=== PATIENT | male | born 1995 | race Caucasian/White ===

== ENCOUNTER 2022-02-09 07:59 | Inpatient (IN) ==
[2022-02-09] MEDS ORDERED: IOPAMIDOL 100 ML BOTTLE IV ONE (08:00)
[2022-02-09] MEDS ORDERED: ASPIRIN 81 MG TAB.CHEW CHEWED ONE (08:18)
[2022-02-09] MEDS ORDERED: morphine 2 MG/ML VIAL IV ONE (08:18)
[2022-02-09] MEDS ORDERED: ONDANSETRON 4 MG/2 ML VIAL IV ONE (08:18)
[2022-02-09] MEDS ORDERED: 0.9 % SODIUM CHLORIDE 1,000 ML IV ONE (08:18)
--- NOTE | 2022-02-09 08:26 | Emergency Department Note ---
Chest Pain HPI General Chief Complaint: Chest Pain Stated Complaint: chest pain Time Seen by Provider: 02/09/22 08:07 Source: patient Mode of arrival: ambulatory Limitations: no limitations History of Present Illness HPI Narrative: Narrative: Patient presents to the ED with complaints of chest pain that started about 20 minutes prior to arrival. Patient states that the pain is on the right side of his chest and is a deep ache. He states he was at work when the pain came on and it dropped into his knees he was in such pain. At that time he rated at 10/10. He states the pain is now about 4/10. He reports initially having some nausea and some shortness of breath with it. States he is also had some chills. Patient is very emotional during this interview. He denies fever, vomiting, heart palpitation, pain rating to his left arm or neck, headache, vision changes, hemoptysis, melena, medic easier, hematemesis, abdominal pain. Patiently recently had a stent removed from his urethra due to a stricture that he had. He states when he peed this morning he did not have any burning but he still has a little bit of blood which she was told was to be expected. Patient denies any other alleviating or aggravating factors. Related Data Home Medications Medication Instructions Recorded Confirmed ibuprofen 800 mg tablet 800 mg PO Q8H PRN Pain 02/09/22 02/09/22 sildenafil 25 mg tablet 25 mg PO QDAY 02/09/22 02/09/22 Previous Rx's Medication Instructions Recorded ciprofloxacin HCl 250 mg tablet 250 mg PO BID 5 days #10 tabs 02/09/22 Allergies Allergy/AdvReac Type Severity Reaction Status Date / Time No Known Drug Allergies Allergy Unverified 02/09/22 08:04 Review of Systems ROS ROS Narrative: Narrative: All systems ED: reviewed and negative except as stated. PFSH Narrative Patient History Narrative: Narrative: Medical/Surgical/Family History All Active Problems (Updated 02/09/22 @ 11:39 by Steven Hauser DO) Urinary tract infection (Acute) Sepsis (Acute) Acidosis, lactic (Acute) Social History Smoking Status: Never smoker Exam Narrative Narrative: Narrative: General Limitations: no limitations General appearance: Present alert Chest Chest: Present tenderness Respiratory Respiratory: Present normal lung sounds bilaterally; Absent respiratory distress Cardiovascular Cardiovascular: Present normal rhythm and tachycardia Adbominal Abdominal: Present soft, tenderness and normal bowel sounds Expanded Abdominal Abdominal Tenderness: Present epigastrium; Absent RUQ Extremities Extremities: Present normal capillary refill Neurological Neurological: Present oriented X3 and normal gait Psychiatric Psychiatric: Present anxious and serious Skin Skin: Present warm (WNL) and intact Course Course Course Narrative: Patient was evaluated for right-sided chest pain. He has some reproducible chest pain with palpation. EKG was obtained and was unremarkable. Troponins were negative x2. Patient was found to be acidotic with elevated lactic acid greater than 4 and also a pH less than 7.3. Patient was aggressively hydrated with IV fluids. Chest x-ray obtained with image reviewed myself with no acute cardiopulmonary findings. Patient's D-dimer was elevated so a CT of the chest was obtained was negative for DVT. After receiving IV fluids patient appeared much better and interacted with me more appropriately and was not as anxious. UA was concerning for UTI so was given IV Rocephin and vancomycin. Patient does meet sepsis criteria with tachycardia, tachypnea and source of infection. His white cell count was normal. Repeat VBG show that patient's pH had normalized and his lactic acid had returned to within normal limits. Patient could have been dehydrated along with a UTI but he is now hemodynamically stable. We will go ahead and discharge him home with oral Cipro x5 days. He is to follow with his PCP within 1 week. Patient is seek medical attention symptoms worsen. Patient and family expressed verbal understanding of and agreement of plan ---Patient was about to be discharged but then he spiked a fever of 101 and his blood pressure dropped to 120 systolically to the low 90s systolically. His blood pressure maintained around there. Patient himself felt fine. He was given some oral Tylenol. At this point patient does meet sepsis criteria and a known infection and I do not feel comfortable discharging him home. I discussed the case with our hospitalist who agrees that patient should be admitted for UTI sepsis. Plan of care was discussed with the patient and his family and they agree with this change in to be admitted. Consultations Consultation #1: Case discussed with hospitalist, Dr. Kilgore, who has accepted patient to be admitted to the hospital for UTI sepsis Time: 13:05 Vital Signs Vital signs: Vital Signs Temperature 99.1 F H 02/09/22 08:00 Pulse Rate 130 H 02/09/22 08:00 Respiratory Rate 20 02/09/22 08:00 Blood Pressure 131/81 02/09/22 08:00 Pulse Oximetry (%) 95 02/09/22 08:00 Oxygen Delivery Method 02/09/22 08:00 Temperature 101.2 F H 02/09/22 12:39 Pulse Rate 114 H 02/09/22 12:44 Respiratory Rate 22 02/09/22 12:44 Blood Pressure 92/58 02/09/22 12:44 Pulse Oximetry (%) 96 02/09/22 12:44 Oxygen Delivery Method 02/09/22 08:00 MDM MDM Narrative Medical decision making narrative: Narrative: Differential Diagnosis Differential Diagnosis: TN, atypical chest pain, GERD Medical Records Medical records reviewed: Yes I reviewed the patient's medical records. Lab Data Lab results reviewed: Yes I reviewed the patient's lab results. Result diagrams: 02/09/22 08:19 Labs: Lab Results 02/09/22 02/09/22 02/09/22 Range/Units 08:15 08:16 08:19 WBC 4.8 (4.5-11.0) K/mcL RBC 5.88 (4.63-6.08) M/mcL Hgb 16.5 (13.7-17.5) g/dL Hct 52.1 H (40.1-51.0) % MCV 88.6 (80.0-100.0) fL MCH 28.1 (26.0-34.0) pg MCHC 31.7 (31.0-36.0) g/dL RDW 13.3 (11.5-14.5) % Plt Count 214 (140-440) K/mcL MPV 9.9 (8.8-12.5) fL Immature Gran % (Auto) 0.4 (0.0-0.5) % Neut % (Auto) 74.6 (38.0-78.0) % Lymph % (Auto) 22.5 (15.5-49.0) % [place] % (Auto) 0.6 L (1.0-12.0) % Eos % (Auto) 1.3 (0.0-7.0) % Baso % (Auto) 0.6 (0.0-2.0) % Lymph # (Auto) 1.07 L (1.50-4.80) K/mcL [place] # (Auto) 0.03 L (0.10-0.90) K/mcL Eos # (Auto) 0.06 (0.00-0.70) K/mcL Baso # (Auto) 0.03 (0.00-0.30) K/mcL Immature Gran # 0.02 (0.00-0.05) K/mcl Absolute Neutrophils 3.54 (1.80-8.00) K/mcL D-Dimer (0.27-0.50) ug/mL POC VBG pH 7.28 L (7.32-7.42) POC VBG pCO2 at Temp 59.5 H (41-51) POC VBG pO2 24 L (25-40) POC VBG HCO3 27.9 (24-28) POC VBG Total CO2 30.0 H (25-29) POC Venous O2 Sat 35.0 L (40-70) POC VBG Base Excess 1.0 (-2-2) VBG Lactic Acid 4.1 H* (0.5-2) Total Bilirubin 0.8 (0.1-1.0) mg/dL Direct Bilirubin < 0.2 (0-0.3) mg/dL AST 17 (<40) U/L ALT 25 (<40) U/L Alkaline Phosphatase 89 (39-117) U/L Total Protein 7.7 (5.9-8.4) gm/dL Albumin 4.7 (3.2-5.2) gm/dL Globulin 3.0 (2.2-3.7) gm/dL Urine Color Urine Appearance (Clear) Urine pH (5.0-9.0) Ur Specific [place] (1.000-1.035) Urine Protein (Negative) mg/dL Urine Glucose (UA) (Negative) mg/dL Urine Ketones (Negative) mg/dL Urine Occult Blood (Negative) mg/dL Urine Nitrate (Negative) Urine Bilirubin (Negative) mg/dL Urine Urobilinogen mg/dL Ur Leukocyte Esterase (Negative) /uL Urine RBC (0-3) /hpf Urine WBC (0-4) /hpf Ur Squamous Epith Cells (0-4) /hpf Urine Bacteria (0) /hpf Ur Culture Indicated? POC Troponin I (0.00-0.08) 02/09/22 02/09/22 02/09/22 Range/Units 08:20 08:32 10:55 WBC (4.5-11.0) K/mcL RBC (4.63-6.08) M/mcL Hgb (13.7-17.5) g/dL Hct (40.1-51.0) % MCV (80.0-100.0) fL MCH (26.0-34.0) pg MCHC (31.0-36.0) g/dL RDW (11.5-14.5) % Plt Count (140-440) K/mcL MPV (8.8-12.5) fL Immature Gran % (Auto) (0.0-0.5) % Neut % (Auto) (38.0-78.0) % Lymph % (Auto) (15.5-49.0) % [place] % (Auto) (1.0-12.0) % Eos % (Auto) (0.0-7.0) % Baso % (Auto) (0.0-2.0) % Lymph # (Auto) (1.50-4.80) K/mcL [place] # (Auto) (0.10-0.90) K/mcL Eos # (Auto) (0.00-0.70) K/mcL Baso # (Auto) (0.00-0.30) K/mcL Immature Gran # (0.00-0.05) K/mcl Absolute Neutrophils (1.80-8.00) K/mcL D-Dimer 0.63 H (0.27-0.50) ug/mL POC VBG pH 7.36 (7.32-7.42) POC VBG pCO2 at Temp 49.6 (41-51) POC VBG pO2 20 L (25-40) POC VBG HCO3 27.8 (24-28) POC VBG Total CO2 29.0 (25-29) POC Venous O2 Sat 30.0 L (40-70) POC VBG Base Excess 2.0 (-2-2) VBG Lactic Acid 2.0 (0.5-2) Total Bilirubin (0.1-1.0) mg/dL Direct Bilirubin (0-0.3) mg/dL AST (<40) U/L ALT (<40) U/L Alkaline Phosphatase (39-117) U/L Total Protein (5.9-8.4) gm/dL Albumin (3.2-5.2) gm/dL Globulin (2.2-3.7) gm/dL Urine Color Urine Appearance (Clear) Urine pH (5.0-9.0) Ur Specific [place] (1.000-1.035) Urine Protein (Negative) mg/dL Urine Glucose (UA) (Negative) mg/dL Urine Ketones (Negative) mg/dL Urine Occult Blood (Negative) mg/dL Urine Nitrate (Negative) Urine Bilirubin (Negative) mg/dL Urine Urobilinogen mg/dL Ur Leukocyte Esterase (Negative) /uL Urine RBC (0-3) /hpf Urine WBC (0-4) /hpf Ur Squamous Epith Cells (0-4) /hpf Urine Bacteria (0) /hpf Ur Culture Indicated? POC Troponin I < 0.02 (0.00-0.08) 02/09/22 02/09/22 Range/Units 10:57 11:04 WBC (4.5-11.0) K/mcL RBC (4.63-6.08) M/mcL Hgb (13.7-17.5) g/dL Hct (40.1-51.0) % MCV (80.0-100.0) fL MCH (26.0-34.0) pg MCHC (31.0-36.0) g/dL RDW (11.5-14.5) % Plt Count (140-440) K/mcL MPV (8.8-12.5) fL Immature Gran % (Auto) (0.0-0.5) % Neut % (Auto) (38.0-78.0) % Lymph % (Auto) (15.5-49.0) % [place] % (Auto) (1.0-12.0) % Eos % (Auto) (0.0-7.0) % Baso % (Auto) (0.0-2.0) % Lymph # (Auto) (1.50-4.80) K/mcL [place] # (Auto) (0.10-0.90) K/mcL Eos # (Auto) (0.00-0.70) K/mcL Baso # (Auto) (0.00-0.30) K/mcL Immature Gran # (0.00-0.05) K/mcl Absolute Neutrophils (1.80-8.00) K/mcL D-Dimer (0.27-0.50) ug/mL POC VBG pH (7.32-7.42) POC VBG pCO2 at Temp (41-51) POC VBG pO2 (25-40) POC VBG HCO3 (24-28) POC VBG Total CO2 (25-29) POC Venous O2 Sat (40-70) POC VBG Base Excess (-2-2) VBG Lactic Acid (0.5-2) Total Bilirubin (0.1-1.0) mg/dL Direct Bilirubin (0-0.3) mg/dL AST (<40) U/L ALT (<40) U/L Alkaline Phosphatase (39-117) U/L Total Protein (5.9-8.4) gm/dL Albumin (3.2-5.2) gm/dL Globulin (2.2-3.7) gm/dL Urine Color Yellow Urine Appearance Hazy A (Clear) Urine pH 7.0 (5.0-9.0) Ur Specific [place] 1.040 (1.000-1.035) Urine Protein Negative (Negative) mg/dL Urine Glucose (UA) Negative (Negative) mg/dL Urine Ketones Negative (Negative) mg/dL Urine Occult Blood 0.20 (Negative) mg/dL Urine Nitrate Pos A (Negative) Urine Bilirubin Negative (Negative) mg/dL Urine Urobilinogen Negative mg/dL Ur Leukocyte Esterase 250 A (Negative) /uL Urine RBC 29 H (0-3) /hpf Urine WBC 20 H (0-4) /hpf Ur Squamous Epith Cells < 1 (0-4) /hpf Urine Bacteria Mod A (0) /hpf Ur Culture Indicated? yes POC Troponin I < 0.02 (0.00-0.08) ED POC Tests ED POC Tests: KERI - Influenza A Negative KERI - Influenza B Negative KERI - SARS Antigen Negative Radiology Data Radiology results reviewed: Yes I reviewed the patient's radiology results. Radiology results narrative: Chest x-ray obtained with image reviewed myself, agree with radiologist interpretation CT angiogram of the chest obtained with image reviewed myself, agree with radiologist interpretation EKG Data EKG #1: EKG attestation: Yes I reviewed and interpreted this EKG. 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: No Clinical Impression: Acidosis, lactic Urinary tract infection Qualifiers: Urinary tract infection type: site unspecified Hematuria presence: without hematuria Qualified Code(s): N39.0 - Urinary tract infection, site not specified Sepsis Qualifiers: Sepsis type: sepsis due to unspecified organism Sepsis acute organ dysfunction status: without acute organ dysfunction Qualified Code(s): A41.9 - Sepsis, unspecified organism Activity: resume usual activities as tolerated Instructions: Urinary Tract Infection in Men (DC) Activity Restrictions/Additional Instructions: Follow-up PCP within 1 week Use antibiotics as prescribed Drink plenty of fluid Seek medical attention symptoms worsen Patient Disposition: Xfer As Outpt/Obs ([facility]) Condition: Fair Follow up with: No,PCP [Primary Care Provider] - Prescriptions: New ciprofloxacin HCl 250 mg tablet 250 mg PO BID 5 Days Qty: 10 0RF No Action ibuprofen 800 mg Tablet 800 mg PO Q8H PRN (Reason: Pain) sildenafil 25 mg Tablet 25 mg PO QDAY Rx Instructions: administer 30 minutes to 4 hours before activity
[2022-02-09] MEDS ORDERED: 0.9 % SODIUM CHLORIDE 2,260 ML IV ONE (08:27)
--- NOTE | 2022-02-09 08:53 | XRay Report ---
INDICATION: cp TECHNIQUE: AP portable semiupright chest x-ray COMPARISON: None FINDINGS: Lungs:Lungs are negative. No focal pulmonary parenchymal infiltrate or mass Heart, vascular:No significant cardiomegaly. Pulmonary vascularity is normal. No pulmonary edema or pulmonary congestion Mediastinum, rodolfo:No mediastinal widening. No hilar mass Pleura:No pleural fluid. No pleural-based mass or calcification Skeletal:Negative. IMPRESSION: Negative AP chest x-ray Interpreted and Authenticated by: Aurelio Khanna 02/09/22
[2022-02-09 08:58] LABS: Basophils # (Auto) 0.03 K/mcL (0.00-0.30); Basophils % (Auto) 0.6 % (0.0-2.0); Eosinophils # (Auto) 0.06 K/mcL (0.00-0.70); Eosinophils % (Auto) 1.3 % (0.0-7.0); Hematocrit 52.1 % (40.1-51.0); Hemoglobin 16.5 g/dL (13.7-17.5); Lymphocytes # (Auto) 1.07 K/mcL (1.50-4.80); Lymphocytes % (Auto) 22.5 % (15.5-49.0); Mean Cell Volume 88.6 fL (80.0-100.0); Mean Corpuscular HGB Conc 31.7 g/dL (31.0-36.0); Mean Platelet Volume 9.9 fL (8.8-12.5); Monocytes # (Auto) 0.03 K/mcL (0.10-0.90); Monocytes % (Auto) 0.6 % (1.0-12.0); Neutrophils % (Auto) 74.6 % (38.0-78.0); Platelet Count 214 K/mcL (140-440); RBC 5.88 M/mcL (4.63-6.08); Red Cell Distribution Width 13.3 % (11.5-14.5); WBC 4.8 K/mcL (4.5-11.0)
[2022-02-09 09:18] LABS: ALT/SGPT 25 U/L (<40); AST/SGOT 17 U/L (<40); Albumin 4.7 gm/dL (3.2-5.2); Alkaline Phosphatase 89 U/L (39-117); Bilirubin,Direct < 0.2 mg/dL (0-0.3); Bilirubin,Total 0.8 mg/dL (0.1-1.0)
--- NOTE | 2022-02-09 10:31 | Cat Scan Report ---
INDICATION: Chest pain, tachycardia, elevated D-dimer COMPARISON: Previous chest x-ray dated 02/09/2022 TECHNIQUE: Axial images obtained through the chest. 70ml Isovue 370 injected intravenously, and scanning was performed during pulmonary arterial phase. Sagittally and coronally reformatted images were obtained. MIP reformatted images. FINDINGS: Lungs:No focal pulmonary parenchymal density. No calcified or noncalcified nodule Mediastinum, vascular:Main pulmonary artery, right pulmonary artery, left pulmonary artery are negative. No intraluminal filling defects. No lobar, segmental, or subsegmental emboli. Thoracic aorta is negative. No aneurysmal dilatation No pathologic mediastinal or hilar adenopathy Heart:No cardiomegaly. No pericardial effusion. Pleura:No significant pleural effusion. No pleural mass or calcification Axilla, supraclavicular regions, chest wall:No pathologic axillary or supraclavicular adenopathy. Musculoskeletal:Negative thoracic spine. No compression fracture. No lytic lesion. No rib or sternal lesions Upper Abdomen:Negative IMPRESSION: Negative pulmonary CTA The exam was performed using radiation dose optimization techniques including, but not limited to, automated exposure control, adjustment of the mA and/or kV according to patient size and use of iterative reconstruction technique. Interpreted and Authenticated by: Aurelio Khanna 02/09/22
[2022-02-09] MEDS ORDERED: cefTRIAXone 2 GM in DEXTROSE 5% IN WATER 50 ML IV ONE (10:44)
[2022-02-09] MEDS ORDERED: VANCOMYCIN 1,000 MG in 0.9 % SODIUM CHLORIDE 250 ML IV ONE (10:45)
[2022-02-09] MEDS ORDERED: VANCOMYCIN 1,500 MG in 0.9 % SODIUM CHLORIDE 500 ML IV ONE (11:00)
[2022-02-09] MEDS ORDERED: ACETAMINOPHEN 325 MG TABLET PO ONE (12:36)
[2022-02-09] MEDS ORDERED: IBUPROFEN 800 MG TABLET PO PRN (13:23)
[2022-02-09 13:26] LABS: Appearance,Urine HAZY (Clear); Bacteria,Urine MOD /hpf (0); Bilirubin,Urine Negative (Negative); Color,Urine YELLOW; Culture Indicated,Urine yes; Glucose,Urine (UA) Negative (Negative); Ketones,Urine Negative (Negative); Leukocyte Esterase,Urine 250 /uL (Negative); Nitrate,Urine POS (Negative); Protein,Urine Negative (Negative); Urine RBC 29 /hpf (0-3); Urine Squamous Epithelial Cell < 1 /hpf (0-4); Urine WBC 20 /hpf (0-4); Urobilinogen,Urine Negative
--- NOTE | 2022-02-09 13:40 | Internal Med History&Physical ---
HPI History of Present Illness Patient information: Note initiated : 02/09/22 at 1:28 pm Service Date, if different from initiated Date: [] Patient: Arya Ojeda a 26 y/o M admitted on for chest pain. Chief Complaint: [chest pain, chills] Chief complaint: chest pain, chills History of present illness: Mr. Ojeda is a 26 year old M history of urethral stricture, status post surgical interventions by urologist Dr. Palomares a week ago, and he is Villegas catheter removed yesterday, presenting with 1 day history of acute onset chest pain and chills. He stated that he never had any UTI in the past. This morning at 7:30 AM, he had acute onset substernal chest pain that last for 30 seconds before it resolved spontaneously. He is also reporting chills. He denies any fever or diaphoresis. He denies any urinary symptoms such as dysuria, or change in urinary frequency or urgency. He is complain of lower middle back pain. He denies any GI upset such as nausea or vomiting. He presented to our ED today, significant for lactic acid of 4.0, and after 3 L of NS bolus given, repeat lactic acid 2.0. UA positive for leukocyte esterase and nitrates suggestive of the presence of urinary tract infections. Lack of leukocytosis with WBC 4.8. Troponin <0.02. Vital signs at ED presentation also significant for tachycardia and tachypnea with heart rate and rate of breathing in the 1 teens and 30s, respectively. Fever with T-max 38.4. Admission request was called for complicated urinary infections. Constitutional Constitutional: Present chills; Absent excessive sweating, fatigue, fever(s) or weakness EENT Eyes: Absent blurry vision, change in vision, loss of vision or other visual disturbances Ears: Absent decreased hearing or tinnitus Nose, mouth and throat: Absent abnormal hearing, dry mouth, headache(s), nasal congestion or sore throat Cardiovascular Cardiovascular: Present chest pain at rest; Absent chest pain, edema, irregular heart rhythm or palpatations Respiratory Respiratory: Absent cough, dyspnea or wheezing Gastrointestinal Gastrointestinal: Absent abdominal pain, constipation, diarrhea, nausea or vomiting Musculoskeletal Musculoskeletal: Present back pain; Absent deformity, limited range of motion, muscle cramps, muscle weakness or numbness Integumentary Integumentary: Absent lesions, rash or wounds Neurological Neurological: Absent focal weakness, headache(s) or numbness Psychiatric Psychiatric: Absent anxiety, depression or hallucinations PFSH PFSH All Active Problems (Updated 02/09/22 @ 13:45 by Hiro Kilgore MD) Obesity (BMI 35.0-39.9 without comorbidity) (Acute) Urinary tract infection (Acute) Sepsis (Acute) Acidosis, lactic (Acute) Social History smoking status: Never smoker MEDS/ALLERGIES Home Medications and Allergies Home Medications Medication Instructions Recorded Confirmed Type ciprofloxacin HCl 250 mg tablet 250 mg PO BID 5 days #10 tabs 02/09/22 Rx ibuprofen 800 mg tablet 800 mg PO Q8H PRN Pain 02/09/22 02/09/22 History sildenafil 25 mg tablet 25 mg PO QDAY 02/09/22 02/09/22 History Allergies Allergy/AdvReac Type Severity Reaction Status Date / Time No Known Drug Allergies Allergy Unverified 02/09/22 08:04 EXAM Constitutional Vitals: Temp Pulse Resp BP Pulse Ox O2 Del Method 38.4 C H 114 H 22 92/58 96 02/09/22 12:39 02/09/22 12:44 02/09/22 12:44 02/09/22 12:44 02/09/22 12:44 02/09/22 08:00 General appearance: cooperative, no acute distress and obese Head Head exam: Present atraumatic and normocephalic Eye Eye exam: Present EOMI and PERRL ENT ENT exam: Present mucous membranes moist, normal exam and normal external ear exam Neck Neck exam: Present normal inspection; Absent lymphadenopathy, tenderness or thyromegaly Respiratory Respiratory exam: Absent accessory muscle use, respiratory distress or wheezes Cardiovascular Cardiovascular exam: Present tachycardia; Absent JVD GI/Abdominal GI/Abdominal exam: Present normal bowel sounds and soft; Absent organomegaly or tenderness Rectal Rectal exam: Present deferred Extremities Exam Extremities exam: Present full ROM, normal capillary refill and normal inspection; Absent tenderness Neurological Exam Neurological exam: Present alert, CN II-XII intact and oriented X3; Absent motor sensory deficit Psychiatric Psychiatric exam: Present normal affect and normal mood; Absent anxious or depressed Skin Skin exam: Present dry and intact DATA Data Completed and Pending Labs: Labs from last 24 hours 02/09/22 02/09/22 02/09/22 11:04 10:57 10:55 WBC RBC Hgb Hct MCV MCH MCHC RDW Plt Count MPV Immature Gran % (Auto) Neut % (Auto) Lymph % (Auto) [place] % (Auto) Eos % (Auto) Baso % (Auto) Lymph # (Auto) [place] # (Auto) Eos # (Auto) Baso # (Auto) Immature Gran # Absolute Neutrophils D-Dimer POC VBG pH 7.36 POC VBG pCO2 at Temp 49.6 POC VBG pO2 20 L POC VBG HCO3 27.8 POC VBG Total CO2 29.0 POC Venous O2 Sat 30.0 L POC VBG Base Excess 2.0 VBG Lactic Acid 2.0 Total Bilirubin Direct Bilirubin AST ALT Alkaline Phosphatase Total Protein Albumin Globulin Urine Color Yellow Urine Appearance Hazy A Urine pH 7.0 Ur Specific [place] 1.040 Urine Protein Negative Urine Glucose (UA) Negative Urine Ketones Negative Urine Occult Blood 0.20 Urine Nitrate Pos A Urine Bilirubin Negative Urine Urobilinogen Negative Ur Leukocyte Esterase 250 A Urine RBC 29 H Urine WBC 20 H Ur Squamous Epith Cells < 1 Urine Bacteria Mod A Ur Culture Indicated? yes POC Troponin I < 0.02 02/09/22 02/09/22 02/09/22 08:32 08:20 08:19 WBC 4.8 RBC 5.88 Hgb 16.5 Hct 52.1 H MCV 88.6 MCH 28.1 MCHC 31.7 RDW 13.3 Plt Count 214 MPV 9.9 Immature Gran % (Auto) 0.4 Neut % (Auto) 74.6 Lymph % (Auto) 22.5 [place] % (Auto) 0.6 L Eos % (Auto) 1.3 Baso % (Auto) 0.6 Lymph # (Auto) 1.07 L [place] # (Auto) 0.03 L Eos # (Auto) 0.06 Baso # (Auto) 0.03 Immature Gran # 0.02 Absolute Neutrophils 3.54 D-Dimer 0.63 H POC VBG pH POC VBG pCO2 at Temp POC VBG pO2 POC VBG HCO3 POC VBG Total CO2 POC Venous O2 Sat POC VBG Base Excess VBG Lactic Acid Total Bilirubin Direct Bilirubin AST ALT Alkaline Phosphatase Total Protein Albumin Globulin Urine Color Urine Appearance Urine pH Ur Specific [place] Urine Protein Urine Glucose (UA) Urine Ketones Urine Occult Blood Urine Nitrate Urine Bilirubin Urine Urobilinogen Ur Leukocyte Esterase Urine RBC Urine WBC Ur Squamous Epith Cells Urine Bacteria Ur Culture Indicated? POC Troponin I < 0.02 02/09/22 02/09/22 08:16 08:15 WBC RBC Hgb Hct MCV MCH MCHC RDW Plt Count MPV Immature Gran % (Auto) Neut % (Auto) Lymph % (Auto) [place] % (Auto) Eos % (Auto) Baso % (Auto) Lymph # (Auto) [place] # (Auto) Eos # (Auto) Baso # (Auto) Immature Gran # Absolute Neutrophils D-Dimer POC VBG pH 7.28 L POC VBG pCO2 at Temp 59.5 H POC VBG pO2 24 L POC VBG HCO3 27.9 POC VBG Total CO2 30.0 H POC Venous O2 Sat 35.0 L POC VBG Base Excess 1.0 VBG Lactic Acid 4.1 H* Total Bilirubin 0.8 Direct Bilirubin < 0.2 AST 17 ALT 25 Alkaline Phosphatase 89 Total Protein 7.7 Albumin 4.7 Globulin 3.0 Urine Color Urine Appearance Urine pH Ur Specific [place] Urine Protein Urine Glucose (UA) Urine Ketones Urine Occult Blood Urine Nitrate Urine Bilirubin Urine Urobilinogen Ur Leukocyte Esterase Urine RBC Urine WBC Ur Squamous Epith Cells Urine Bacteria Ur Culture Indicated? POC Troponin I A/P Assessment and plan (1) Urinary tract infection: Status: Acute Qualifiers: Hematuria presence: without hematuria Urinary tract infection type: site unspecified Qualified Code(s): N39.0 - Urinary tract infection, site not specified (2) Sepsis: Status: Acute Qualifiers: Sepsis acute organ dysfunction status: without acute organ dysfunction Sepsis type: sepsis due to unspecified organism Qualified Code(s): A41.9 - Sepsis, unspecified organism (3) Obesity (BMI 35.0-39.9 without comorbidity): Status: Acute Narrative A/P Narrative: Assessment and Plans: 1. UTI with sepsis: Inpatient med surg Serial lactic acid Procalcitonin level Blood culture Urine culture cbc w/ auto diff in the morning to trend WBC CT abdomen pelvis s/p 3L fluid bolus given in the ED, to be followed by NS@100cc/hr [place] 2. 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
--- NOTE | 2022-02-09 13:53 | Cat Scan Report ---
INDICATION: sepsis, uti COMPARISON: None. TECHNIQUE: Axial images were obtained through the abdomen and pelvis. Sagittally and coronally reformatted images. FINDINGS: This patient underwent previous chest CTA approximate 4 hours prior to this examination. There is contrast material present. Lung bases:No pulmonary parenchymal density. No calcified or noncalcified nodule. No pleural or pericardial effusion Liver:Negative. No detectable hepatic mass. Liver contour is smooth Gallbladder, bilary:No calcified gallstones. No gallbladder wall thickening. No pericholecystic fluid. No dilated bile ducts Spleen:No splenomegaly Pancreas:No pancreatic mass. No peripancreatic abnormality Adrenal glands:Negative Kidneys,ureters,bladder:No solid renal mass. No hydronephrosis. No obstructing or nonobstructing calculi. There is contrast material within the renal collecting systems and nonobstructing calculi may be obscured No hydroureter. No ureteral calculus. Bladder is filled with contrast material. There is no discrete bladder mass. Bladder wall appears diffusely thickened without focal abnormality. There is no intraluminal or mural gas. This patient gives a history of urethral instrumentation approximately one week ago. There is no catheter within the urethra or bladder. Gastrointestinal:No detectable colonic mass. There is no diverticulitis. Negative small bowel. No mechanical small bowel obstruction. No bowel wall thickening. No focal abnormality. Negative stomach and duodenum. No focal abnormality. Appendix: The appendix is negative Vascular:No abdominal aortic aneurysm Lymphatic:No retroperitoneal adenopathy. No significant mesenteric adenopathy. Mesentery, peritoneum:No free intraperitoneal fluid. No intra-abdominal abscess. No pneumoperitoneum Reproductive:Prostate is not significantly enlarged Musculoskeletal:No lumbar compression fractures. There is degenerative disc disease at L5-S1 with mild L5-S1 retrolisthesis. No lytic lesions. Sacrum, pelvis, hips are negative No anterior abdominal wall or inguinal hernia. IMPRESSION: 1. Urinary bladder wall appears mildly thickened. No discrete mass. No intraluminal or intramural gas 2. Degenerative disc disease and retrolisthesis at L5-S1 The exam was performed using radiation dose optimization techniques including, but not limited to, automated exposure control, adjustment of the mA and/or kV according to patient size and use of iterative reconstruction technique. Interpreted and Authenticated by: Aurelio Khanna 02/09/22
[2022-02-09] MEDS ORDERED: IPRATROPIUM/ALBUTEROL 3 ML AMPUL.NEB NEB PRN (14:44)
[2022-02-09] MEDS ORDERED: ONDANSETRON 4 MG/2 ML VIAL IV PRN (14:44)
[2022-02-09] MEDS ORDERED: cefTRIAXone 1 GM in DEXTROSE 5% IN WATER 50 ML IV SCH (14:44)
[2022-02-09] MEDS ORDERED: oxyCODONE HCL 5 MG TABLET PO PRN (14:44)
[2022-02-09] MEDS ORDERED: morphine 4 MG/ML VIAL IV PRN (14:44)
[2022-02-09] MEDS ORDERED: ZOLPIDEM 5 MG TABLET PO PRN (14:44)
[2022-02-09] MEDS: 0.9 % SODIUM CHLORIDE 10 ML SYRINGE IV SCH ×2 (15:47→20:59)
[2022-02-09] MEDS: 0.9 % SODIUM CHLORIDE 1,000 ML IV SCH (16:05)
[2022-02-09] MEDS: DOCUSATE SODIUM 100 MG CAPSULE PO SCH (20:58)
[2022-02-09] MEDS ORDERED: SENNOSIDES 1 TABLET PO SCH (21:00)
[2022-02-10] MEDS: 0.9 % SODIUM CHLORIDE 1,000 ML IV SCH (02:30)
[2022-02-10] MEDS: 0.9 % SODIUM CHLORIDE 10 ML SYRINGE IV SCH (04:36)
[2022-02-10 06:24] LABS: Basophils # (Auto) 0.02 K/mcL (0.00-0.30); Basophils % (Auto) 0.3 % (0.0-2.0); Eosinophils # (Auto) 0.01 K/mcL (0.00-0.70); Eosinophils % (Auto) 0.1 % (0.0-7.0); Hematocrit 45.1 % (40.1-51.0); Hemoglobin 14.4 g/dL (13.7-17.5); Lymphocytes % (Auto) 6.6 % (15.5-49.0); Mean Cell Volume 89.1 fL (80.0-100.0); Mean Corpuscular HGB Conc 31.9 g/dL (31.0-36.0); Mean Platelet Volume 9.9 fL (8.8-12.5); Monocytes # (Auto) 0.46 K/mcL (0.10-0.90); Monocytes % (Auto) 6.1 % (1.0-12.0); Neutrophils % (Auto) 86.4 % (38.0-78.0); Platelet Count 144 K/mcL (140-440); RBC 5.06 M/mcL (4.63-6.08); Red Cell Distribution Width 13.6 % (11.5-14.5); WBC 7.6 K/mcL (4.5-11.0)
[2022-02-10 06:49] LABS: ALT/SGPT 21 U/L (<40); AST/SGOT 17 U/L (<40); Albumin 3.5 gm/dL (3.2-5.2); Albumin/Globulin Ratio 1.8 (1.0-2.3); Alkaline Phosphatase 69 U/L (39-117); Bilirubin,Total 0.5 mg/dL (0.1-1.0); Blood Urea Nitrogen 9 mg/dL (6-20); Carbon Dioxide 23 mmol/L (22-30); Chloride 106 mmol/L (96-108); Glomerular Filtration Rate 116; Glucose 106 mg/dL (70-105)
[2022-02-10] MEDS: DOCUSATE SODIUM 100 MG CAPSULE PO SCH (08:20)
[2022-02-10] MEDS ORDERED: cefTRIAXone 1 GM VIAL IV SCH (09:00)
[2022-02-10] MEDS ORDERED: ENOXAPARIN 40 MG/0.4 ML SYRINGE SQ SCH (09:00)
--- NOTE | 2022-02-10 09:16 | EKG ---
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
[2022-02-10 09:22] LABS: POC Calcium, Ionized 1.22 (1.16-1.32); POC Creatinine 1.2 (0.6-1.2)
[2022-02-10] MEDS ORDERED: FLU VACC QS2022-23(6MOS UP)/PF 60 MCG/0.5 ML SYRINGE IM ONE (10:00)
--- NOTE | 2022-02-10 10:35 | Internal Med Progress Note ---
SUBJECTIVE Subjective Patient information: Note initiated : 02/10/22 at 10:32 am Service Date, if different from initiated Date: [] Patient: Arya Ojeda a 26 y/o M admitted on 02/09/22 for chest pain. Chief Complaint: [] Interval history: Mr. Ojeda is a 26 year old M history of urethral stricture, status post surgical interventions by urologist Dr. Palomares a week ago, and he is Villegas catheter removed yesterday, presenting with 1 day history of acute onset chest pain and chills. He stated that he never had any UTI in the past. This morning at 7:30 AM, he had acute onset substernal chest pain that last for 30 seconds before it resolved spontaneously. He is also reporting chills. He denies any fever or diaphoresis. He denies any urinary symptoms such as dysuria, or change in urinary frequency or urgency. He is complain of lower middle back pain. He denies any GI upset such as nausea or vomiting. He presented to our ED today, significant for lactic acid of 4.0, and after 3 L of NS bolus given, repeat lactic acid 2.0. UA positive for leukocyte esterase and nitrates suggestive of the presence of urinary tract infections. Lack of leukocytosis with WBC 4.8. Troponin <0.02. Vital signs at ED presentation also significant for tachycardia and tachypnea with heart rate and rate of breathing in the 1 teens and 30s, respectively. Fever with T-max 38.4. Admission request was called for complicated urinary infections. 02/10: Fever with Tmax 38.1 this morning. Blood and urine cultures no growth to date. WBC 7.6. CT abdomen pelvis showing urinary bladder wall thickening suggestive of cystitis. Patient denies any fever chills or sweating. He denies any urinary symptoms. Continue IV fluid and Rocephin while awaiting cultures results. Constitutional Vitals: Vital Signs Temp Pulse Resp BP Pulse Ox O2 Del Method 36.9 C 106 H 16 121/74 96 02/10/22 08:00 02/10/22 08:00 02/10/22 08:00 02/10/22 08:00 02/10/22 08:00 02/10/22 08:00 Period Temp Pulse Resp BP Sys/Chung Pulse Ox O2 Del Method O2 Flow Rate Last 24 Hr 36.4 C-38.4 C 90-119 16-34 72-150/44-124 93-100 Room Air-Room Air Intake and Output 02/09/22 02/10/22 02/10/22 21:59 05:59 13:59 Intake Total 240 1500 Balance 240 1500 Weight 119.113 kg Intake & Output: Intake & Output 02/09/22 02/10/22 02/10/22 21:59 05:59 13:59 Intake Total 240 1500 Balance 240 1500 Weight 119.113 kg Intake: IV 1000 Sodium Chloride 0.9% 1,000 ml @ 1000 100 mls/hr IV .Q10H SUZY Rx#: [id number] Oral 240 500 Other: Urine Appearance Clear # Voids 1 1 Head Head exam: Present atraumatic and normal inspection Eye Eye exam: Present normal appearance ENT ENT exam: Present mucous membranes moist, normal exam and normal external ear exam Neck Neck exam: Present normal inspection Respiratory Respiratory exam: Present normal respiratory exam Cardiovascular Cardiovascular exam: Present normal rate and rhythm GI/Abdominal GI/Abdominal exam: Present normal bowel sounds Back Exam Back exam: Present normal inspection Neurological Exam Neurological exam: Present alert and oriented X3 Skin Skin exam: Present intact and warm OBJ DATA Labs CBC & Chem 7: 02/10/22 05:34 02/10/22 05:34 Labs: Abnormal Lab Results 02/10/22 02/10/22 02/09/22 05:34 05:34 11:04 Hct Neut % (Auto) 86.4 H Lymph % (Auto) 6.6 L [place] % (Auto) Lymph # (Auto) 0.50 L [place] # (Auto) D-Dimer POC VBG pH POC VBG pCO2 at Temp POC VBG pO2 POC VBG Total CO2 POC Venous O2 Sat VBG Lactic Acid Glucose 106 H Calcium 8.0 L Total Protein 5.5 L Globulin 2.0 L Procalcitonin Urine Appearance Hazy A Urine Nitrate Pos A Ur Leukocyte Esterase 250 A Urine RBC 29 H Urine WBC 20 H Urine Bacteria Mod A 02/09/22 02/09/22 02/09/22 10:55 10:55 08:20 Hct Neut % (Auto) Lymph % (Auto) [place] % (Auto) Lymph # (Auto) [place] # (Auto) D-Dimer 0.63 H POC VBG pH POC VBG pCO2 at Temp POC VBG pO2 20 L POC VBG Total CO2 POC Venous O2 Sat 30.0 L VBG Lactic Acid Glucose Calcium Total Protein Globulin Procalcitonin 1.33 H Urine Appearance Urine Nitrate Ur Leukocyte Esterase Urine RBC Urine WBC Urine Bacteria 02/09/22 02/09/22 08:19 08:16 Hct 52.1 H Neut % (Auto) Lymph % (Auto) [place] % (Auto) 0.6 L Lymph # (Auto) 1.07 L [place] # (Auto) 0.03 L D-Dimer POC VBG pH 7.28 L POC VBG pCO2 at Temp 59.5 H POC VBG pO2 24 L POC VBG Total CO2 30.0 H POC Venous O2 Sat 35.0 L VBG Lactic Acid 4.1 H* Glucose Calcium Total Protein Globulin Procalcitonin Urine Appearance Urine Nitrate Ur Leukocyte Esterase Urine RBC Urine WBC Urine Bacteria Meds: Medications Albuterol/Ipratropium (Ipratropium/Albuterol 3 Ml Ampul.Neb) 3 ml NEB Q4HRT PRN PRN Reason: Wheezing Ceftriaxone Sodium (Ceftriaxone 1 Gm Vial) 1 gm IV Q24H [facility] Last Admin: 02/10/22 08:07 Dose: 1 gm Docusate Sodium (Docusate Sodium 100 Mg Capsule) 100 mg PO BID [facility] Last Admin: 02/10/22 08:20 Dose: Not Given Enoxaparin Sodium (Enoxaparin 40 Mg/0.4 Ml Syringe) 40 mg SQ DAILY [facility] Last Admin: 02/10/22 08:07 Dose: 40 mg Sodium Chloride (Sodium Chloride 0.9%) 1,000 mls @ 100 mls/hr IV .Q10H [facility] Last Admin: 02/10/22 02:30 Dose: 100 mls/hr Ibuprofen (Ibuprofen 800 Mg Tablet) 800 mg PO Q8HP PRN; Protocol PRN Reason: Pain Last Admin: 02/09/22 16:06 Dose: 800 mg Morphine Sulfate (Morphine 4 Mg/Ml Vial) 4 mg IV Q4HP PRN; Protocol PRN Reason: Per Pain Protocol Ondansetron HCl (Ondansetron 4 Mg/2 Ml Vial) 4 mg IV Q6HP PRN PRN Reason: Nausea And Vomiting Oxycodone HCl (Oxycodone Hcl 5 Mg Tablet) 5 mg PO Q4HP PRN; Protocol PRN Reason: Per Pain Protocol Senna (Sennosides 1 Tablet) 2 tab PO HS [facility] Last Admin: 02/09/22 20:59 Dose: Not Given Sodium Chloride (0.9 % Sodium Chloride 10 Ml Syringe) 10 ml IV Q8 [facility] Last Admin: 02/10/22 04:36 Dose: Not Given Zolpidem Tartrate (Zolpidem 5 Mg Tablet) 5 mg PO HSP PRN PRN Reason: Insomnia A/P Assessment and plan (1) Urinary tract infection: Status: Acute Qualifiers: Hematuria presence: without hematuria Urinary tract infection type: site unspecified Qualified Code(s): N39.0 - Urinary tract infection, site not specified (2) Sepsis: Status: Acute Qualifiers: Sepsis acute organ dysfunction status: without acute organ dysfunction Sepsis type: sepsis due to unspecified organism Qualified Code(s): A41.9 - Sepsis, unspecified organism (3) Obesity (BMI 35.0-39.9 without comorbidity): Status: Acute Narrative A/P Narrative: Assessment and Plans: 1. UTI with sepsis: Inpatient med surg Serial lactic acid Procalcitonin level Blood culture, no growth to date Urine culture, no growth to date cbc w/ auto diff in the morning to trend WBC CT abdomen pelvis s/p 3L fluid bolus given in the ED, to be followed by NS@100cc/hr Rocephin 2. Obesity BMI 35.0-39.9: Bee Breeder patient on life style modifications such as healthy diet and regular exercise in order to lose weight GI ppx: not currently indicated DVT ppx: Lovenox Code status: Full Prognosis: guarded Disposition: inpatient med surg Time Spent With Patient Time: Total time spent is greater than 50% in coordination of care (as documented) at patient's floor/unit and/or counseling patient: Total time spent with greater than 50% in coordination of care (as documented) at patient's floor/unit and/or counseling patient:: 25 - 35 minutes QUALITY VTE Deep Vein Thrombosis/Pulmonary Embolism Present on Admission: No
--- NOTE | 2022-02-10 10:37 | Discharge Summary ---
Discharge Provider Provider IMPORTANT FOLLOW-UP INFORMATION FOR PCP: Patient information: Note initiated : 02/10/22 at 10:35 am Service Date, if different from initiated Date: [] Patient: Arya Ojeda a 26 y/o M admitted on 02/09/22 for chest pain. Chief Complaint: [] Date of admission: 02/09/22 14:35 Discharge date: 02/10/22 Primary care physician: PCP No Attending physician on admission: Hiro Kilgore Consults: 02/09/22 Consult to Physician [CONS] Stat Comment: Consulting Provider: Hiro Kilgore Reason For Exam: Physician to Consult Attending physician on discharge: Hiro Mata Pui COURSE Hospital Course Hospital course: Mr. Ojeda is a 26 year old M history of urethral stricture, status post surgical interventions by urologist Dr. Palomares a week ago, and he is Villegas catheter removed yesterday, presenting with 1 day history of acute onset chest pain and chills. He stated that he never had any UTI in the past. This morning at 7:30 AM, he had acute onset substernal chest pain that last for 30 seconds before it resolved spontaneously. He is also reporting chills. He denies any fever or diaphoresis. He denies any urinary symptoms such as dysuria, or change in urinary frequency or urgency. He is complain of lower middle back pain. He denies any GI upset such as nausea or vomiting. He presented to our ED today, significant for lactic acid of 4.0, and after 3 L of NS bolus given, repeat lactic acid 2.0. UA positive for leukocyte esterase and nitrates suggestive of the presence of urinary tract infections. Lack of leukocytosis with WBC 4.8. Troponin <0.02. Vital signs at ED presentation also significant for tachycardia and tachypnea with heart rate and rate of breathing in the 1 teens and 30s, re spectively. Fever with T-max 38.4. Admission request was called for complicated urinary infections. 02/10: Left AMA. Discharge diagnosis: UTI with sepsis Time Spent with Patient Time attestation: Total time spent providing and/or coordinating discharge services: Time spent: Less than 30 minutes EXAM Constitutional Vitals: Temp Pulse Resp BP Pulse Ox O2 Del Method 36.9 C 106 H 16 121/74 96 02/10/22 08:00 02/10/22 08:00 02/10/22 08:00 02/10/22 08:00 02/10/22 08:00 02/10/22 08:00 General appearance: cooperative and no acute distress Head Head exam: Present atraumatic and normocephalic Eye Eye exam: Present EOMI and PERRL ENT ENT exam: Present mucous membranes moist, normal exam and normal external ear exam Neck Neck exam: Present normal inspection; Absent lymphadenopathy, tenderness or thyromegaly Respiratory Respiratory exam: Absent accessory muscle use, respiratory distress or wheezes Cardiovascular Cardiovascular exam: Present normal rate and rhythm; Absent JVD GI/Abdominal GI/Abdominal exam: Present normal bowel sounds and soft; Absent organomegaly or tenderness Rectal Rectal exam: Present deferred Extremities Exam Extremities exam: Present full ROM, normal capillary refill and normal inspection; Absent tenderness Neurological Exam Neurological exam: Present alert, CN II-XII intact and oriented X3; Absent motor sensory deficit Psychiatric Psychiatric exam: Present normal affect and normal mood; Absent anxious or depressed Skin Skin exam: Present dry and intact Discharge Data Data Completed and Pending Labs on day of discharge: Labs from last 24 hours 02/10/22 02/10/22 02/09/22 05:34 05:34 14:17 WBC 7.6 RBC 5.06 Hgb 14.4 Hct 45.1 POC Hct MCV 89.1 MCH 28.5 MCHC 31.9 RDW 13.6 Plt Count 144 MPV 9.9 Immature Gran % (Auto) 0.5 Neut % (Auto) 86.4 H Lymph % (Auto) 6.6 L [place] % (Auto) 6.1 Eos % (Auto) 0.1 Baso % (Auto) 0.3 Lymph # (Auto) 0.50 L [place] # (Auto) 0.46 Eos # (Auto) 0.01 Baso # (Auto) 0.02 Immature Gran # 0.04 Absolute Neutrophils 6.55 POC VBG pH POC VBG pCO2 at Temp POC VBG pO2 POC VBG HCO3 POC VBG Total CO2 POC Venous O2 Sat POC VBG Base Excess VBG Lactic Acid 1.4 POC Sodium Sodium 137 POC Potassium Potassium 4.3 POC Chloride Chloride 106 Carbon Dioxide 23 POC Total CO2 Anion Gap 8.0 POC BUN BUN 9 Creatinine 0.9 POC Creatinine GFR Calculation 116 Glucose 106 H POC Glucose Calcium 8.0 L POC WB Ioniz Calcium Total Bilirubin 0.5 AST 17 ALT 21 Alkaline Phosphatase 69 Total Protein 5.5 L Albumin 3.5 Globulin 2.0 L Albumin/Globulin Ratio 1.8 Procalcitonin Urine Color Urine Appearance Urine pH Ur Specific [place] Urine Protein Urine Glucose (UA) Urine Ketones Urine Occult Blood Urine Nitrate Urine Bilirubin Urine Urobilinogen Ur Leukocyte Esterase Urine RBC Urine WBC Ur Squamous Epith Cells Urine Bacteria Ur Culture Indicated? POC Troponin I 02/09/22 02/09/22 02/09/22 11:04 10:57 10:55 WBC RBC Hgb Hct POC Hct MCV MCH MCHC RDW Plt Count MPV Immature Gran % (Auto) Neut % (Auto) Lymph % (Auto) [place] % (Auto) Eos % (Auto) Baso % (Auto) Lymph # (Auto) [place] # (Auto) Eos # (Auto) Baso # (Auto) Immature Gran # Absolute Neutrophils POC VBG pH POC VBG pCO2 at Temp POC VBG pO2 POC VBG HCO3 POC VBG Total CO2 POC Venous O2 Sat POC VBG Base Excess VBG Lactic Acid POC Sodium Sodium POC Potassium Potassium POC Chloride Chloride Carbon Dioxide POC Total CO2 Anion Gap POC BUN BUN Creatinine POC Creatinine GFR Calculation Glucose POC Glucose Calcium POC WB Ioniz Calcium Total Bilirubin AST ALT Alkaline Phosphatase Total Protein Albumin Globulin Albumin/Globulin Ratio Procalcitonin 1.33 H Urine Color Yellow Urine Appearance Hazy A Urine pH 7.0 Ur Specific [place] 1.040 Urine Protein Negative Urine Glucose (UA) Negative Urine Ketones Negative Urine Occult Blood 0.20 Urine Nitrate Pos A Urine Bilirubin Negative Urine Urobilinogen Negative Ur Leukocyte Esterase 250 A Urine RBC 29 H Urine WBC 20 H Ur Squamous Epith Cells < 1 Urine Bacteria Mod A Ur Culture Indicated? yes POC Troponin I < 0.02 02/09/22 02/09/22 10:55 08:07 WBC RBC Hgb Hct POC Hct 53.0 MCV MCH MCHC RDW Plt Count MPV Immature Gran % (Auto) Neut % (Auto) Lymph % (Auto) [place] % (Auto) Eos % (Auto) Baso % (Auto) Lymph # (Auto) [place] # (Auto) Eos # (Auto) Baso # (Auto) Immature Gran # Absolute Neutrophils POC VBG pH 7.36 POC VBG pCO2 at Temp 49.6 POC VBG pO2 20 L POC VBG HCO3 27.8 POC VBG Total CO2 29.0 POC Venous O2 Sat 30.0 L POC VBG Base Excess 2.0 VBG Lactic Acid 2.0 POC Sodium 142 Sodium POC Potassium 4.0 Potassium POC Chloride 100 Chloride Carbon Dioxide POC Total CO2 26.0 Anion Gap POC BUN 19 BUN Creatinine POC Creatinine 1.2 GFR Calculation Glucose POC Glucose 98 Calcium POC WB Ioniz Calcium 1.22 Total Bilirubin AST ALT Alkaline Phosphatase Total Protein Albumin Globulin Albumin/Globulin Ratio Procalcitonin Urine Color Urine Appearance Urine pH Ur Specific [place] Urine Protein Urine Glucose (UA) Urine Ketones Urine Occult Blood Urine Nitrate Urine Bilirubin Urine Urobilinogen Ur Leukocyte Esterase Urine RBC Urine WBC Ur Squamous Epith Cells Urine Bacteria Ur Culture Indicated? POC Troponin I Preliminary micro results at discharge 02/09/22 08:52 Blood Culture - Preliminary Blood 02/09/22 08:43 Blood Culture - Preliminary Blood Discharge Plan Patient/Caregiver Discharge Instructions Activity: resume usual activities as tolerated Diet: Regular Diet Instructions: Ciprofloxacin (By mouth), Urinary Tract Infection in Men (DC) Activity Restrictions/Additional Instructions: Follow-up PCP within 1 week. Use antibiotics as prescribed. Drink plenty of fluid. Seek medical attention if symptoms worsen. This discharge packet is provided to you to help keep you informed about your care. We want to ensure you get everything you need when you go home. You will also be receiving a call from us in a few days to follow up with you and see how you are doing since your discharge. This gives us a chance to listen to any concerns you maybe experiencing since you were discharged or any additional needs you may have, as well as providing us feedback on your care experience. We strive to always provide excellent care and thank you for your feedback and for choosing [facility]. Prescriptions: New sulfamethoxazole-trimethoprim [Bactrim DS] 800-160 mg tablet 1 tab PO BID Qty: 10 0RF Continued ibuprofen 800 mg Tablet 800 mg PO Q8H PRN (Reason: Pain) sildenafil 25 mg Tablet 25 mg PO QDAY Rx Instructions: administer 30 minutes to 4 hours before activity Follow Up Plan Follow up with: No,PCP [Primary Care Provider] - Patient Disposition: Left Against Medical Advice Prognosis: Fair Rehab Potential: Good I certify that the patient requires SNF services: No Overall status at discharge: patient is progressing back to baseline QUALITY VTE Deep Vein Thrombosis/Pulmonary Embolism Present on Admission: No
== END 2022-02-10 10:54 | disposition left against medical advice (07) | DRG 872 ==
LOC: ED 07:59 → MEDSUR 14:35
PROVIDERS: ADMIT Internal Medicine; ATTEND Internal Medicine